=== PATIENT | female | born 1945 | race Caucasian/White ===

== ENCOUNTER → 2017-10-31 | Outpatient (REF) | payer MEDICARE ==
[~2017-10-31] MED LIST: AMLO-1 PO; ASP81 PO; ASPI-715 PO; AZI250 PO; CELE-1 PO; CLI150 PO; DIA5 PO; DICL100T54 PO; FUR20 PO; GAB100 PO; GAB300 PO; HCTZ25 PO; IBUP-1618 PO; INSU100I36 SQ; KET10 PO; LEVI SQ; LISI-362 PO; LOR5/325 PO; MULT1CAP41 PO; OLM20 PO; PER PO; PIRO-91 PO; PRE20 PO; SIMV-44 PO; SITA1TAB13 PO; TRA50 PO; VENL75CA58 PO; VITAMIN E; [UNRECOGNIZED DRUG - CODE] PO; [UNRECOGNIZED DRUG - OTHER]; [UNRECOGNIZED DRUG - OTHER] PO
[2017-10-31 13:52] LABS: PLATELET COUNT, AUTOMATED 288 K/uL (150-450)
== END ==
LOC: ZZSTITCHES 13:41
PROVIDERS: ATTEND Physician Assistant
DX: R60.9 Edema, unspecified (principal); M79.671 Pain in right foot
CPT/HCPCS: 84550; 85025

== ENCOUNTER → 2017-12-08 | Outpatient (CLI) | payer MEDICARE, OTHER ==
--- NOTE | 2017-12-08 15:55 | RADIOLOGY IMAGING REPORT ---
FACILITY: [facility] PATIENT NAME: Jane Arana : 1945 MR: [id number] V: [id number] EXAM DATE: ORDERING PHYSICIAN: GABRIELLA SUGGS TECHNOLOGIST: Location: [facility] [place] Patient: Jane Arana : 1945 Visit/Account:[id number] Date of Sevice: 12/08/2017 HIP LEFT Indication: Left hip pain Comparison: None. Findings: There is mild narrowing of the right and left hip joint. Bones of the pelvis and proximal f emurs are intact. Soft tissues are normal. Degenerative changes are seen in the lower lumbar spine. IMPRESSION: 1. Mild bilateral hip osteoarthritis. 2. Degenerative disc disease change lower lumbar spine. Report Dictated By: Naren Pham at 12/08/2017 3:48 PM Report E-Signed By: Naren Pham at 12/08/2017 3:51 PM WSN:[id number]
== END ==
LOC: RAD 15:23
PROVIDERS: ATTEND Nurse Practitioner Family
DX: M16.0 Bilateral primary osteoarthritis of hip (principal); M19.90 Unspecified osteoarthritis, unspecified site

== ENCOUNTER → 2017-12-25 | Outpatient (CLI) | payer MEDICARE, OTHER ==
[2017-12-25 09:15] LABS: PLATELET COUNT, AUTOMATED 271 K/uL (150-450)
--- NOTE | 2017-12-25 10:44 | RADIOLOGY IMAGING REPORT ---
FACILITY: [facility] PATIENT NAME: Jane Arana : 1945 MR: [id number] V: [id number] EXAM DATE: ORDERING PHYSICIAN: GABRIELLA SUGGS TECHNOLOGIST: Location: [facility] [place] Patient: Jane Arana : 1945 Visit/Account:[id number] Date of Sevice: 12/25/2017 Exam type: CHEST PA AND LAT History: Coughing wheezing x2-3 months Comparison: None. Findings: The lungs are free of acute effusions, infiltrates or edema. The cardiac silhouette is normal in siz e. The trachea is midline. There are moderate spondylotic changes of the thoracic spine. IMPRESSION: 1. No acute cardiopulmonary process is seen Report Dictated By: Ofelia Church MD at 12/25/2017 10:36 AM Report E-Signed By: Ofelia Church MD at 12/25/2017 10:37 AM WSN:[email or web address]
== END ==
LOC: RAD 08:24
PROVIDERS: ATTEND Nurse Practitioner Family
DX: R60.0 Localized edema (principal); R05 Cough; R06.2 Wheezing
CPT/HCPCS: 36415; 71046; 82040; 82247; 82310; 82374; 82435; 82565; 82947; 83880; 84075; 84132; 84155; 84295; 84450; 84460; 84520; 85025

== ENCOUNTER → 2018-01-07 | Outpatient (CLI) | payer MEDICARE, OTHER | LOC: RESP 05:22 | PROVIDERS: ATTEND Nurse Practitioner Family | DX: J98.4 Other disorders of lung (principal) | CPT/HCPCS: 94060; 94726; 94729 ==

== ENCOUNTER 2018-12-06 06:19 | Inpatient (IN) | payer MEDICARE, OTHER ==
[~2018-12-06] VITALS: Ht 168.9 cm; Wt 121.1 kg
--- NOTE | 2018-12-06 06:31 | ER Report ---
History and Physical Time Seen By MD: 06:31 Hx. of Stated Complaint: PATIENT DIAGNOSED WITH INFULENZA ON , PATIENT STATES NOT GETTING BETTER, GETTING WORSE, SHE IS HAVING INC REASED SHORTNESS OF BREATH, PAIN IN CHEST WITH BREATHING. WAS PLACED ON OXYGEN TO GO HOME, TAMIFLU, INHALER, BENZONATATE AND AZYTHROMYCIN. (ISMAEL CARRASQUILLO MD) HPI/ROS CHIEF COMPLAINT: Difficulty breathing HISTORY OF PRESENT ILLNESS: This is a 73-year-old female. She was seen in urgent care on Thursday and diagnosed with influenza after a positive nasal swab. She has a history of COPD. She does not usually wear oxygen; uses Breo once a day. She was placed on oxygen at that time, started on Tamiflu, azithromycin, jett onatate, and albuterol. Since that time, she is been having more and more trouble breathing and having some chest pain with breathing as well. Cough seems worse. Poor appetite. No nausea or vomiting. Normal bowel and bladder function. (ISMAEL CARRASQUILLO MD) Allergies: Coded Allergies: Penicillins (Verified Allergy, Intermediate, EYE SWELLING, ITCHING, 1) Home Meds Reported Medications Albuterol Sulfate (PROVENTIL HFA) 6.7 Gm Inh, 2 PUFF INH BID, INH 12/06/18 Azithromycin (ZITHROMAX) 250 Mg Tablet, 1 TAB PO QDAY, TAB 12/06/18 Benzonatate (BENZONATATE) 200 Mg Capsule, 200 MG PO TID PRN for COUGH, #15 CAP 12/06/18 Oseltamivir Phosphate (TAMIFLU) 75 Mg Cap, 75 MG PO BID, CAP 12/06/18 Sitagliptin Phos/Metformin Hcl (JANUMET 50-1,000 MG TABLET) 1 Each Tablet, 1 EACH PO BID 12/06/18 Losartan Potassium (LOSARTAN POTASSIUM) 100 Mg Tablet, 100 MG PO QDAY 12/06/18 Fesoterodine Fumarate (TOVIAZ) 8 Mg Tabsr, 8 MG PO QDAY 12/06/18 Diclofenac Potassium (ZIPSOR) 25 Mg Capsule, 75 MG PO QDAY, CAPSULE 12/06/18 Levothyroxine Sodium (LEVOTHYROXINE SODIUM) 100 Mcg Tablet, 100 MCG PO QDAY, TAB 12/06/18 Cholecalciferol (Vitamin D3) (VITAMIN D3) 1,000 Unit Tablet, 5000 UNIT PO QDAY, TAB 12/06/18 Gabapentin (GABAPENTIN) 300 Mg Capsule, 300 MG PO TID, CAPSULE 12/06/18 Furosemide (FUROSEMIDE) 20 Mg Tablet, 1 TAB PO QDAY, TAB 12/06/18 Atorvastatin Calcium (ATORVASTATIN CALCIUM) 20 Mg Tablet, 1 TAB PO QDAY, TAB 12/06/18 Potassium Chloride (KLOR-CON 10) 10 Meq Tablet.er, 10 MEQ PO QDAY 12/06/18 Liraglutide (VICTOZA 2-RODRIGO) 0.6 Mg/0.1 Ml Pen.injctr, 1.8 MG SQ QDAY 12/06/18 Discontinued Reported Medications Gabapentin (Neurontin) 300 Mg Cap, 300 MG PO QHS, 0 Refills 05/19/11 [Vitamin E] No Conflict Check, 0 Refills 05/19/11 Aspirin (Aspirin) 81 Mg Tablet.dr, 81 MG PO DAILY, 0 Refills 05/19/11 Insulin Detemir (Levemir) 100 U/Ml Vial, 13 U SQ QPM, 0 Refills 05/19/11 Simvastatin (Zocor) 40 Mg Tablet, 40 MG PO QHS, 0 Refills 05/19/11 Lisinopril (Lisinopril) 10 Mg Tablet, 10 MG PO QAM, 0 Refills 05/19/11 Hydrochlorothiazide (Hydrochlorothiazide) 25 Mg Tab, 12.5 MG PO QDAY, 0 Refills 05/19/11 Diclofenac Sodium (Voltaren-Xr) 100 Mg Tab.sr.24h, 100 MG PO QAM, 0 Refills 05/19/11 Tramadol Hcl (Ultram) 50 Mg Tab, 50 MG PO BID, 0 Refills 05/19/11 Amlodipine Besylate (Amlodipine Besylate) 5 Mg Tablet, 5 MG PO QAM, 0 Refills 05/19/11 Gabapentin (Neurontin) 100 Mg Cap, 200 MG PO, 0 Refills 05/19/11 Sitagliptin Phos/Metformin Hcl (Janumet 50-500 Mg Tablet) 1 Udtab Tablet, 1 UDTAB PO BID, 0 Refills 05/19/11 Past Medical/Surgical History COPD, Hypertension, hyperlipidemia, Type 2 diabetes, arthritis, total knee replacement, cholecystectomy, LAP-BAND surgery (ISMAEL CARRASQUILLO MD) Reviewed Nurses Notes: Yes (ISMAEL CARRASQUILLO MD) Constitutional Vital Sign - Last 24 Hours 12/06/18 12/06/18 12/06/18 12/06/18 06:23 06:23 06:40 06:40 Temp 98.3 Pulse 94 80 Resp 28 20 B/P (MAP) 157/81 Pulse Ox 70 92 O2 Delivery Room Air Nasal Cannula O2 Flow Rate 2.0 2.0 12/06/18 12/06/18 12/06/18 12/06/18 06:50 06:50 06:58 06:58 Pulse 88 88 Resp 20 18 Pulse Ox 93 96 O2 Delivery Nasal Cannula Nasal Cannula O2 Flow Rate 2.0 2.0 (FREIDA CUEVA MD) Physical Exam General Appearance: The patient is alert. No acute distress. Non-toxic in appearance. Eyes: Pupils are equal, round. No pallor, injection or icterus. ENT: Mucous membranes are moist. Normal oral mucosa. Posterior oropharynx with erythema and post nasal drainage. Nasal mucosa with some erythema and increased mucus. Neck: Supple and non tender. Respiratory: Lungs have significant rhonchi that are coarse sounding throughout, expiratory wheezes as well. Cardiovascular: Regular rate and rhythm. No murmurs, gallops or rubs. Normal capillary refill. Gastrointestinal: Abdomen is soft, nontender. Nondistended. Normal active bowel sounds. Neurological: Alert and oriented x3. No focal neurologic deficits. Skin: Warm and dry. Musculoskeletal: No tenderness in palpation of the cervical, thoracic and lumbar spine. DIFFERENTIAL DIAGNOSIS: After history and physical exam, differential diagnosis was considered for shortness of breath including but not limited to pneumonia in addition to her influenza, COPD exacerbation. (ISMAEL CARRASQUILLO MD) Medical Decision Making Data Points Result Diagram: 12/06/1844 12/06/1844 Laboratory Hematology Test 12/06/18 06:44 Red Blood Count 4.81 M/uL (4.17-5.56) Mean Corpuscular Volume 92.1 fL (80.0-96.0) Mean Corpuscular Hemoglobin 30.0 pg (26.0-33.0) Mean Corpuscular Hemoglobin Concent 32.6 g/dL (32.0-36.0) Red Cell Distribution Width 14.4 % (11.5-14.5) Mean Platelet Volume 8.3 fL (7.2-11.1) Neutrophils (%) (Auto) 80.0 % (39.4-72.5) Lymphocytes (%) (Auto) 11.6 % (17.6-49.6) Monocytes (%) (Auto) 7.8 % (4.1-12.4) Eosinophils (%) (Auto) 0.2 % (0.4-6.7) Basophils (%) (Auto) 0.4 % (0.3-1.4) Nucleated RBC Relative Count (auto) 0.1 /100WBC Neutrophils # (Auto) 9.3 K/uL (2.0-7.4) Lymphocytes # (Auto) 1.3 K/uL (1.3-3.6) Monocytes # (Auto) 0.9 K/uL (0.3-1.0) Eosinophils # (Auto) 0.0 K/uL (0.0-0.5) Basophils # (Auto) 0.0 K/uL (0.0-0.1) Nucleated RBC Absolute Count (auto) 0.01 K/uL Sodium Level 140 mmol/L (137-145) Potassium Level 4.4 mmol/L (3.5-5.0) Chloride Level 106 mmol/L (98-107) Carbon Dioxide Level 23 mmol/L (22-31) Blood Urea Nitrogen 22 mg/dl (7-18) Creatinine 0.80 mg/dl (0.52-1.04) Glomerular Filtration Rate Calc > 60.0 Random Glucose 115 mg/dl (75-110) Lactate 2.1 mmol/L (0.7-2.1) Calcium Level 8.8 mg/dl (8.4-10.2) Total Bilirubin 0.5 mg/dl (0.2-1.3) Aspartate Amino Transf (AST/SGOT) 104 U/L (0-35) Alanine Aminotransferase (ALT/SGPT) 77 U/L (0-56) Alkaline Phosphatase 71 U/L (0-126) Total Protein 7.9 g/dl (6.3-8.2) Albumin 4.1 g/dl (3.5-5.0) Chemistry Test 12/06/18 06:44 White Blood Count 11.6 k/uL (4.5-11.0) Red Blood Count 4.81 M/uL (4.17-5.56) Hemoglobin 14.4 g/dL (12.0-16.0) Hematocrit 44.3 % (34.0-47.0) Mean Corpuscular Volume 92.1 fL (80.0-96.0) Mean Corpuscular Hemoglobin 30.0 pg (26.0-33.0) Mean Corpuscular Hemoglobin Concent 32.6 g/dL (32.0-36.0) Red Cell Distribution Width 14.4 % (11.5-14.5) Platelet Count 230 K/uL (150-450) Mean Platelet Volume 8.3 fL (7.2-11.1) Neutrophils (%) (Auto) 80.0 % (39.4-72.5) Lymphocytes (%) (Auto) 11.6 % (17.6-49.6) Monocytes (%) (Auto) 7.8 % (4.1-12.4) Eosinophils (%) (Auto) 0.2 % (0.4-6.7) Basophils (%) (Auto) 0.4 % (0.3-1.4) Nucleated RBC Relative Count (auto) 0.1 /100WBC Neutrophils # (Auto) 9.3 K/uL (2.0-7.4) Lymphocytes # (Auto) 1.3 K/uL (1.3-3.6) Monocytes # (Auto) 0.9 K/uL (0.3-1.0) Eosinophils # (Auto) 0.0 K/uL (0.0-0.5) Basophils # (Auto) 0.0 K/uL (0.0-0.1) Nucleated RBC Absolute Count (auto) 0.01 K/uL Glomerular Filtration Rate Calc > 60.0 Lactate 2.1 mmol/L (0.7-2.1) Calcium Level 8.8 mg/dl (8.4-10.2) Total Bilirubin 0.5 mg/dl (0.2-1.3) Aspartate Amino Transf (AST/SGOT) 104 U/L (0-35) Alanine Aminotransferase (ALT/SGPT) 77 U/L (0-56) Alkaline Phosphatase 71 U/L (0-126) Total Protein 7.9 g/dl (6.3-8.2) Albumin 4.1 g/dl (3.5-5.0) (HILE,FREIDA C MD) ED Course/Re-evaluation ED Course 73-year-old female presents with 3 days of signs and symptoms of influenza, COPD exacerbation. She was started on Tamiflu and antibiotics on Thursday, as well as 3 L of O2 at home. However, she presented for worsening difficulty breathing and sats of 70% at presentation. She has significant wheezing bilaterally which improved somewhat with nebs, however will require continued nebulizer and close monitoring. We'll admit for further evaluation. Decision to Disposition Date: Dec 06, 2018 Decision to Disposition Time: 07:52 (FREIDA CUEVA MD) Depart Departure Latest Vital Signs Vital Signs Date Time Temp Pulse Resp B/P (MAP) Pulse Ox O2 Delivery O2 Flow Rate FiO2 12/06/18 06:58 96 Nasal Cannula 2.0 12/06/18 06:58 88 18 12/06/18 06:23 98.3 157/81 (FREIDA CUEVA MD) Impression: Primary Impression: COPD exacerbation Additional Impression: Influenza Condition: Improved Disposition: Admitted from ER Referrals: GABRIELLA SUGGS (PCP) Problem Qualifiers ISMAEL CARRASQUILLO MD Dec 06, 2018 06:31 FREIDA CUEVA MD Dec 06, 2018 07:53
[2018-12-06] MEDS ORDERED: methylPREDNIS SUCC 125 MG/2ML IVP ONE (06:35)
[2018-12-06] MEDS ORDERED: ALBUTEROL/IPRATROPIUM 3 ML NEB NEB ONE (06:35)
[2018-12-06] MEDS ORDERED: DICL25CA6 PO (06:37)
[2018-12-06] MEDS ORDERED: LEVO-3 PO (06:37)
[2018-12-06] MEDS ORDERED: FESO8PT PO (06:37)
[2018-12-06] MEDS ORDERED: POTA-23 PO (06:37)
[2018-12-06] MEDS ORDERED: LIRA0.6P3 SQ (06:37)
[2018-12-06] MEDS ORDERED: ATOR20TA65 PO (06:37)
[2018-12-06] MEDS ORDERED: LOSA100T75 PO (06:37)
[2018-12-06] MEDS ORDERED: FURO-45 PO (06:37)
[2018-12-06] MEDS ORDERED: CHOL10005 PO (06:37)
[2018-12-06] MEDS ORDERED: GABA-549 PO (06:37)
[2018-12-06] MEDS ORDERED: ALBUTEROL 2.5 MG/3 ML NEB NEB ONE (06:50)
[2018-12-06 06:54] LABS: PLATELET COUNT, AUTOMATED 230 K/uL (150-450)
--- NOTE | 2018-12-06 07:34 | RADIOLOGY IMAGING REPORT ---
FACILITY: [facility] [place] PATIENT NAME: Jane Arana : 1945 MR: [id number] V: [id number] EXAM DATE: ORDERING PHYSICIAN: ISMAEL CARRASQUILLO TECHNOLOGIST: Location: [facility] - [place], [place] Patient: Jane Arana : 1945 Visit/Account:[id number] Date of Sevice: 12/06/2018 EXAMINATION: Chest radiographs 2 views HISTORY: Cough, hypoxia. COMPARISON: 12/25/2017. FINDINGS: PA and lateral views of the chest are submitted. Lines/tubes: None. Lungs/pleura: No focal consolidation or pleural effusion. Heart: Negative. Mediastinum: Negative. Bony structures/body wall: Mild degenerative changes of the thoracic spine. Visualized upper abdomen: Lap band is partly visualized and appears appropriately positioned. IMPRESSION: No radiographic evidence of acute cardiopulmonary disease. Report Dictated By: Susu Tucker MD at 12/06/2018 7:28 AM Report E-Signed By: Susu Tucker MD at 12/06/2018 7:29 AM WSN:[id number]
[2018-12-06 08:31] VITALS: BP 147/71
[2018-12-06] MEDS ORDERED: SITA1TAB17 PO (08:40)
[2018-12-06] MEDS ORDERED: OSE75 PO (08:40)
[2018-12-06] MEDS ORDERED: AZIT-1 PO (08:40)
[2018-12-06] MEDS ORDERED: ALB6.7R INH (08:40)
[2018-12-06] MEDS ORDERED: BENZ200C15 PO (08:40)
[2018-12-06] MEDS ORDERED: BENZONATATE 100 MG CAP PO PRN (10:00)
[2018-12-06] MEDS ORDERED: ACETAMINOPHEN 325 MG TAB PO PRN (10:00)
[2018-12-06] MEDS ORDERED: ALBUTEROL/IPRATROPIUM 3 ML NEB NEB PRN (10:00)
[2018-12-06] MEDS ORDERED: FLUSH 10 ML SYR IVP PRN (10:00)
--- NOTE | 2018-12-06 10:03 | Antimicrobial Stewardship ---
Antimicrobial Stewardship Empiricly appropriate: Yes (Tamiflu + Azithromycin) Significant PMH: Yes (COPD) Support empiric regimen: Yes Comment Tamiflu + Azithromycin started at Urgent Care on Thu12/04/18--> Admitted with worsening symptoms Determine cumulative duration: Today would be Day 3 - started on 12/04/18 at Urgent Care Determine standard duration: Standard Tx for Influenza- 5 days, may extend duration depending on sx Comment 73 yo F who was seen at Urgent Care on Thursday12/04/18 and was diagnosed with Influenza A and pneumonia, started on Tamiflu and Azithromycin. Came to the Ed with significant wheezing/SOB and painful breathing. Tmax afebrile HR 110s--received albuterol and methylpred in the ED WBC 11.6, 80% neutrophils LFTs elevated AST/ALT = 104/77 Chest Xray- no acute cardiopulmonary disease Scr 0.8 Plan to continue treatment with Tamiflu 75mg po BID and azithromycin to complete a full course of therapy for 5 days total. Add steroids and nebs. Will monitor closely. Nataly Davidson, PharmD, BCOP NATALY DAVIDSON Dec 06, 2018 10:03
[2018-12-06] MEDS: LEVOTHYROXINE SOD 0.1 MG TAB PO SCH (11:00)
[2018-12-06 11:03] VITALS: BP 154/94
[2018-12-06] MEDS: DICLOFENAC SOD 75 MG TABCR PO SCH (11:05)
[2018-12-06] MEDS: OSELTAMIVIR PHOS 75 MG CAP PO SCH ×2 (11:05→20:54)
[2018-12-06] MEDS: LOSARTAN POTASSIUM 50 MG TAB PO SCH (11:06)
[2018-12-06] MEDS: POTASSIUM CHL 10 MEQ TABCR PO SCH (11:06)
[2018-12-06] MEDS: AZITHROMYCIN 250 MG TAB PO SCH (11:06)
[2018-12-06] MEDS: FUROSEMIDE 20 MG TAB PO SCH (11:06)
[2018-12-06] MEDS: ALBUTEROL/IPRATROPIUM 3 ML NEB NEB SCH ×2 (11:20→16:38)
[2018-12-06 14:26] VITALS: BP 157/94
[2018-12-06] MEDS: GABAPENTIN 300 MG CAP PO SCH ×2 (14:26→20:54)
[2018-12-06] MEDS: INSULIN HUM LISPRO 100 UN/ML 3 ML VIAL SUBQ PRN ×2 (17:17→20:55)
[2018-12-06 19:15] VITALS: BP 124/62
--- NOTE | 2018-12-06 20:19 | History & Physical ---
History of Present Illness Chief Complaint CAMPUZANO History of Present Illness 73F presented with minimal to no improvement in status since Dx influenza Thursday. PMHx significant for DM, COPD. Diagnosed with influenza in urgent care started on O2 and Tamiflu. Did not note any improvement in symptoms and was feeling more fatigued so presented to [facility] ER. There showed some improvement after breathing treatment and was recommended for admission for observation and continued breathing treatments. History Problems: (1) COPD (chronic obstructive pulmonary disease) (2) Diabetes Home Meds Reported Medications Albuterol Sulfate (PROVENTIL HFA) 6.7 Gm Inh, 2 PUFF INH BID, INH 12/06/18 Azithromycin (ZITHROMAX) 250 Mg Tablet, 1 TAB PO QDAY, TAB 12/06/18 Benzonatate (BENZONATATE) 200 Mg Capsule, 200 MG PO TID PRN for COUGH, #15 CAP 12/06/18 Oseltamivir Phosphate (TAMIFLU) 75 Mg Cap, 75 MG PO BID, CAP 12/06/18 Sitagliptin Phos/Metformin Hcl (JANUMET 50-1,000 MG TABLET) 1 Each Tablet, 1 EACH PO BID 12/06/18 Losartan Potassium (LOSARTAN POTASSIUM) 100 Mg Tablet, 100 MG PO QDAY 12/06/18 Fesoterodine Fumarate (TOVIAZ) 8 Mg Tabsr, 8 MG PO QDAY 12/06/18 Diclofenac Potassium (ZIPSOR) 25 Mg Capsule, 75 MG PO QDAY, CAPSULE 12/06/18 Levothyroxine Sodium (LEVOTHYROXINE SODIUM) 100 Mcg Tablet, 100 MCG PO QDAY, TAB 12/06/18 Cholecalciferol (Vitamin D3) (VITAMIN D3) 1,000 Unit Tablet, 5000 UNIT PO QDAY, TAB 12/06/18 Gabapentin (GABAPENTIN) 300 Mg Capsule, 300 MG PO TID, CAPSULE 12/06/18 Furosemide (FUROSEMIDE) 20 Mg Tablet, 1 TAB PO QDAY, TAB 12/06/18 Atorvastatin Calcium (ATORVASTATIN CALCIUM) 20 Mg Tablet, 1 TAB PO QDAY, TAB 12/06/18 Potassium Chloride (KLOR-CON 10) 10 Meq Tablet.er, 10 MEQ PO QDAY 12/06/18 Liraglutide (VICTOZA 2-RODRIGO) 0.6 Mg/0.1 Ml Pen.injctr, 1.8 MG SQ QDAY 12/06/18 Discontinued Reported Medications Gabapentin (Neurontin) 300 Mg Cap, 300 MG PO QHS, 0 Refills 05/19/11 [Vitamin E] No Conflict Check, 0 Refills 05/19/11 Aspirin (Aspirin) 81 Mg Tablet.dr, 81 MG PO DAILY, 0 Refills 05/19/11 Insulin Detemir (Levemir) 100 U/Ml Vial, 13 U SQ QPM, 0 Refills 05/19/11 Simvastatin (Zocor) 40 Mg Tablet, 40 MG PO QHS, 0 Refills 05/19/11 Lisinopril (Lisinopril) 10 Mg Tablet, 10 MG PO QAM, 0 Refills 05/19/11 Hydrochlorothiazide (Hydrochlorothiazide) 25 Mg Tab, 12.5 MG PO QDAY, 0 Refills 05/19/11 Diclofenac Sodium (Voltaren-Xr) 100 Mg Tab.sr.24h, 100 MG PO QAM, 0 Refills 05/19/11 Tramadol Hcl (Ultram) 50 Mg Tab, 50 MG PO BID, 0 Refills 05/19/11 Amlodipine Besylate (Amlodipine Besylate) 5 Mg Tablet, 5 MG PO QAM, 0 Refills 05/19/11 Gabapentin (Neurontin) 100 Mg Cap, 200 MG PO, 0 Refills 05/19/11 Sitagliptin Phos/Metformin Hcl (Janumet 50-500 Mg Tablet) 1 Udtab Tablet, 1 UDTAB PO BID, 0 Refills 05/19/11 Allergies: Coded Allergies: Penicillins (Verified Allergy, Intermediate, EYE SWELLING, ITCHING, 05/19/11 ) Patient History: FH: COPD (chronic obstructive pulmonary disease) MOTHER FH: pancreatic cancer FATHER Hx Smoking: No Smoking Status: Never Smoker Hx Alcohol Use: No Hx Substance Use Disorder: No Review of Systems All Systems Reviewed/Normal: Yes, Except as Noted Respiratory: Shortness of Breath, Cough Exam Vital Signs Vital Signs Date Time Temp Pulse Resp B/P (MAP) Pulse Ox O2 Delivery O2 Flow Rate FiO2 12/06/18 19:15 98.7 75 16 124/62 (82) 90 Nasal Cannula 2.0 General Appearance: Alert, Awake, No Acute Distress, Afebrile Neuro: No Gross deficits ENT: Normal Cardiovascular: Normal Rhythm & Peripheral Pulses Respiratory: Other (mild wheezing) GI: Abd Soft and Non-Tender Extremities: Soft and Non Tender, Warm, Pulses, Perfused; No Edema Medical Decision Making Data Points Result Diagram: 12/06/1844 12/06/1844 Assessment and Plan Problems: (1) Influenza Status: Acute Assessment & Plan: On Tamiflu, respiratory status stable. Usually on room air has been on 2L since Thursday. (2) COPD exacerbation Status: Acute Assessment & Plan: Continue azithromycin, begin breathing treatments and PO prednisone. (3) Diabetes Assessment & Plan: Accucheck achs, will cover while inpatient with SSI level 1. Venous Thromboembolism Antithrombotics Is Pt On Any Antithrombotics?: Yes Exam Sepsis Risk: No Definite Risk JEREMY HECK DO Dec 06, 2018 20:19
[2018-12-06] MEDS: ATORVASTATIN 10 MG TAB PO SCH (20:54)
[2018-12-07 04:51] VITALS: BP 119/74
[2018-12-07] MEDS: ALBUTEROL/IPRATROPIUM 3 ML NEB NEB SCH ×4 (05:15→18:04)
[2018-12-07] MEDS: LEVOTHYROXINE SOD 0.1 MG TAB PO SCH (05:28)
[2018-12-07 06:22] LABS: PLATELET COUNT, AUTOMATED 217 K/uL (150-450)
[2018-12-07 07:52] VITALS: BP 131/74
[2018-12-07] MEDS: LOSARTAN POTASSIUM 50 MG TAB PO SCH (09:22)
[2018-12-07] MEDS: GABAPENTIN 300 MG CAP PO SCH ×3 (09:22→20:50)
[2018-12-07] MEDS: ENOXAPARIN 40 MG/0.4ML SYR SC SCH (09:23)
[2018-12-07] MEDS: AZITHROMYCIN 250 MG TAB PO SCH (09:23)
[2018-12-07] MEDS: OSELTAMIVIR PHOS 75 MG CAP PO SCH ×2 (09:23→20:50)
[2018-12-07] MEDS: FUROSEMIDE 20 MG TAB PO SCH (09:23)
[2018-12-07] MEDS: DICLOFENAC SOD 75 MG TABCR PO SCH (09:23)
[2018-12-07] MEDS: predniSONE 20 MG TAB PO SCH (09:23)
[2018-12-07] MEDS: POTASSIUM CHL 10 MEQ TABCR PO SCH (09:23)
[2018-12-07] MEDS ORDERED: ALBUTEROL 2.5 MG/3 ML NEB NEB PRN (09:55)
--- NOTE | 2018-12-07 10:32 | RADIOLOGY IMAGING REPORT ---
FACILITY: [facility] PATIENT NAME: Jane Arana : 1945 MR: [id number] V: [id number] EXAM DATE: ORDERING PHYSICIAN: LINWOOD CHAVES TECHNOLOGIST: Location: [facility] Patient: Jane Arana : 1945 Visit/Account:[id number] Date of Sevice: 12/07/2018 CHEST PA LAT HISTORY: Shortness of breath. COMPARISON: 12/06/2018 FINDINGS: Cardiomediastinal contours: Normal Lungs and pleura: Normal Bones/soft tissues: Multilevel mild degenerative disc disease within the spine. Other findings: None significant IMPRESSION: 1. No acute cardiopulmonary disease. No change. Report Dictated By: Emerson Walton MD at 12/07/2018 10:22 AM Report E-Signed By: Emerson Walton MD at 12/07/2018 10:26 AM WSN:[email or web address]
--- NOTE | 2018-12-07 11:13 | Hospitalist Progress Note ---
Subjective Progress Notes Subjective Patient was admitted with influenza and COPD exacerbation. She has complaints of shortness of breath, wheezing this morning. Patient Complains of: Cardiovascular: No: Chest Pain Respiratory: No: Shortness of Breath Physical Exam Vital Signs Date Time Temp Pulse Resp B/P (MAP) Pulse Ox O2 Delivery O2 Flow Rate FiO2 12/07/18 10:10 71 16 12/07/18 10:05 93 Nasal Cannula 2.0 12/07/18 07:52 97.9 131/74 (93) Intake and Output 12/07/18 00:00 Intake Total 1040 ml Balance 1040 ml Intake Oral 1040 ml # Voids 1 General Appearance: Alert, Awake, No Acute Distress, Afebrile Cardiovascular: Regular Rate and Rhythm Respiratory: No Respiratory Distress, Other (severe expiratory wheezes, coarse throughout) Extremities: Warm, Perfused Psych: Alert & Oriented X3, Appropriate Mood & Affect Result Diagram: 12/07/18 0550 12/07/18 0550 Assessment and Plan Problems: (1) Influenza Status: Acute Assessment & Plan: On Tamiflu, respiratory status stable. Usually on room air has been on 2L since Thursday. (2) COPD exacerbation Status: Acute Assessment & Plan: Continue azithromycin, begin breathing treatments and PO prednisone. Repeated chest x-ray 12/07, shows no change. Will add Ceftriaxone to azithromycin for increased coverage. Also will increase breathing treatment regimen to four times daily and prn. (3) Diabetes Assessment & Plan: Accucheck achs, will cover while inpatient with SSI level 1. Exam Sepsis Risk: No Definite Risk LINWOOD CHAVES Dec 07, 2018 11:13
[2018-12-07] MEDS ORDERED: NS(*) 0.9% 250 ML BAG 250 ML ONE (11:50)
[2018-12-07] MEDS: cefTRIAXone 2 GM VIAL IVP SCH (11:51)
[2018-12-07] MEDS ORDERED: ALBUTEROL/IPRATROPIUM 3 ML NEB NEB SCH (12:00)
[2018-12-07 12:51] VITALS: BP 161/100
[2018-12-07 13:24] VITALS: BP 124/68
[2018-12-07 14:06] VITALS: Ht 168.9 cm; Wt 121.1 kg
[2018-12-07 15:47] VITALS: BP 145/83
[2018-12-07] MEDS: INSULIN HUM LISPRO 100 UN/ML 3 ML VIAL SUBQ PRN ×2 (17:28→20:50)
[2018-12-07] MEDS ORDERED: FLUT1AER INH (18:51)
[2018-12-07] MEDS ORDERED: DICL-195 PO (18:51)
[2018-12-07 19:20] VITALS: BP 153/76
[2018-12-07] MEDS: ATORVASTATIN 10 MG TAB PO SCH (20:50)
[2018-12-08 03:18] VITALS: BP 173/99
[2018-12-08] MEDS: ALBUTEROL/IPRATROPIUM 3 ML NEB NEB SCH ×4 (04:55→17:00)
[2018-12-08] MEDS: LEVOTHYROXINE SOD 0.1 MG TAB PO SCH (05:31)
[2018-12-08 06:18] LABS: PLATELET COUNT, AUTOMATED 209 K/uL (150-450)
[2018-12-08 07:14] VITALS: BP 128/81
[2018-12-08] MEDS: AZITHROMYCIN 250 MG TAB PO SCH (08:37)
[2018-12-08] MEDS: POTASSIUM CHL 10 MEQ TABCR PO SCH (08:38)
[2018-12-08] MEDS: predniSONE 20 MG TAB PO SCH (08:38)
[2018-12-08] MEDS: OSELTAMIVIR PHOS 75 MG CAP PO SCH ×2 (08:39→20:58)
[2018-12-08] MEDS: GABAPENTIN 300 MG CAP PO SCH ×3 (08:39→20:58)
[2018-12-08] MEDS: ENOXAPARIN 40 MG/0.4ML SYR SC SCH (08:39)
[2018-12-08] MEDS: FUROSEMIDE 20 MG TAB PO SCH (08:39)
[2018-12-08] MEDS: DICLOFENAC SOD 75 MG TABCR PO SCH (08:40)
[2018-12-08] MEDS: LOSARTAN POTASSIUM 50 MG TAB PO SCH (08:41)
[2018-12-08] MEDS ORDERED: INFLUENZA VIRUS VAC 0.5ML SYR IM ONLY ONE (10:00)
[2018-12-08] MEDS: cefTRIAXone 2 GM VIAL IVP SCH (10:42)
[2018-12-08] MEDS ORDERED: cefTRIAXone 2 GM VIAL IVP SCH (11:00)
--- NOTE | 2018-12-08 11:29 | Hospitalist Progress Note ---
Subjective Progress Notes Subjective She has complaints of wheezing, but feels she is starting to get better. She had no acute events overnight. Patient Complains of: Cardiovascular: No: Chest Pain Respiratory: No: Shortness of Breath Physical Exam Vital Signs Date Time Temp Pulse Resp B/P (MAP) Pulse Ox O2 Delivery O2 Flow Rate FiO2 12/08/18 09:27 69 16 12/08/18 09:19 93 Nasal Cannula 2.0 12/08/18 07:14 97.8 128/81 (97) Intake and Output 12/08/18 07:00 Intake Total 2300 ml Balance 2300 ml Intake Oral 2300 ml # Voids 1 General Appearance: Alert, Awake, No Acute Distress, Afebrile Neuro: No Gross deficits Cardiovascular: Regular Rate and Rhythm Respiratory: No Respiratory Distress, Other (expiratory wheezes noted throughout, coarse in the bases) Psych: Alert & Oriented X3, Appropriate Mood & Affect Result Diagram: 12/08/1844 12/08/18543 Assessment and Plan Problems: (1) Influenza Status: Acute Assessment & Plan: On Tamiflu, respiratory status stable. Usually on room air has been on 2L since Thursday. (2) COPD exacerbation Status: Acute Assessment & Plan: Continue azithromycin, begin breathing treatments and PO prednisone. Repeated chest x-ray 12/07, shows no change. Will add Ceftriaxone to azithromycin for increased coverage. Also will increase breathing treatment regimen to four times daily and prn. (3) Diabetes Assessment & Plan: Accucheck achs, will cover while inpatient with SSI level 1. Exam Sepsis Risk: No Definite Risk LINWOOD CHAVES Dec 08, 2018 11:29
[2018-12-08] MEDS: INSULIN HUM LISPRO 100 UN/ML 3 ML VIAL SUBQ PRN ×3 (11:53→19:44)
[2018-12-08 14:54] VITALS: BP 151/81
[2018-12-08 19:00] VITALS: BP 162/76
[2018-12-08] MEDS: ATORVASTATIN 10 MG TAB PO SCH (20:59)
[2018-12-09] MEDS: ALBUTEROL/IPRATROPIUM 3 ML NEB NEB SCH ×2 (05:13→09:53)
[2018-12-09] MEDS: LEVOTHYROXINE SOD 0.1 MG TAB PO SCH (06:12)
[2018-12-09 06:57] VITALS: BP 149/81
[2018-12-09 09:16] VITALS: BP 155/75
[2018-12-09] MEDS: GABAPENTIN 300 MG CAP PO SCH (09:19)
[2018-12-09] MEDS: FUROSEMIDE 20 MG TAB PO SCH (09:19)
[2018-12-09] MEDS: OSELTAMIVIR PHOS 75 MG CAP PO SCH (09:20)
[2018-12-09] MEDS: DICLOFENAC SOD 75 MG TABCR PO SCH (09:20)
[2018-12-09] MEDS: predniSONE 20 MG TAB PO SCH (09:20)
[2018-12-09] MEDS: AZITHROMYCIN 250 MG TAB PO SCH (09:21)
[2018-12-09] MEDS: POTASSIUM CHL 10 MEQ TABCR PO SCH (09:21)
[2018-12-09] MEDS: LOSARTAN POTASSIUM 50 MG TAB PO SCH (09:21)
[2018-12-09] MEDS: ENOXAPARIN 40 MG/0.4ML SYR SC SCH (09:22)
[2018-12-09] MEDS ORDERED: PRED20TA6 PO (10:19)
[2018-12-09] MEDS ORDERED: CEF300 PO (10:19)
[2018-12-09] MEDS ORDERED: LEVA1.2527 IH (10:19)
--- NOTE | 2018-12-09 10:29 | Hospitalist Depart ---
Discharge Summary Reason for Hosp/Final Diag: (1) Influenza Status: Acute Hospital Course & Plan: She was admitted with Influenza A. She is on Tamiflu, respiratory status stable. Usually on room air has been on 3L since Thursday, she will decrease to 2L this morning. She will continue Tamiflu prescribed by Urgent care at home. (2) COPD exacerbation Status: Acute Hospital Course & Plan: She was placed on azithromycin by urgent care, she began breathing treatments and PO prednisone. Repeated chest x-ray 12/07, shows no change from previous. Ceftriaxone was added to azithromycin for increased coverage of CAP. Also will increase breathing treatment regimen to four times daily and prn. She will be sent home with breathing treatments, prednisone. She will continue azithromycin from urgent in addition to Omnicef. (3) Diabetes Hospital Course & Plan: Accucheck stephanies, will cover while inpatient with [facility] 1. Departure Latest Vital Signs Vital Signs 12/09/18 12/09/18 12/09/18 12/09/18 06:57 09:16 09:50 09:57 Temp 98.4 Pulse 70 Resp 18 B/P (MAP) 155/75 (101) Pulse Ox 91 O2 Delivery Nasal Cannula O2 Flow Rate 2.0 Weight (Pounds): 267 Result Diagram: 12/08/1854312/08/18543 Condition: Improved Discharge: Home, Self Care Discharge Instructions Home Meds Active Scripts Levalbuterol Hcl (XOPENEX) 1.25 Mg/3 Ml Vial.neb, 1.25 MG IH Q4H PRN for WHEEZING, #90 VIAL Prov:LINWOOD CHAVES 12/09/18 Prednisone (PREDNISONE) 20 Mg Tablet, 20 MG PO QDAY, #14 TAB Take 2 tabs for 2 days, then 1.5 tabs for 3 days, then 1 tab for 3 days, then 0.5 tab for 3 days Prov:LINWOOD CHAVES 12/09/18 Cefdinir 300 Mg Cap (OMNICEF 300 MG CAP (OR EQUIV)) 300 Mg Cap, 300 MG PO BID for 4 Days, #8 CAP Prov:LINWOOD CHAVES 12/09/18 Reported Medications Fluticasone/Vilanterol 100/25 Mcg/Inh (BREO ELLIPTA 100/25 MCG) 1 Each Aer.pow.ba, 1 PUFF INH QDAY, INH 12/07/18 Diclofenac Sodium (DICLOFENAC SODIUM) 75 Mg Tablet.dr, 75 MG PO QDAY, TAB 12/07/18 Albuterol Sulfate (PROVENTIL HFA) 6.7 Gm Inh, 2 PUFF INH BID, INH 12/06/18 Azithromycin (ZITHROMAX) 250 Mg Tablet, 1 TAB PO QDAY, TAB 12/06/18 Benzonatate (BENZONATATE) 200 Mg Capsule, 200 MG PO TID PRN for COUGH, #15 CAP 12/06/18 Oseltamivir Phosphate (TAMIFLU) 75 Mg Cap, 75 MG PO BID, CAP 12/06/18 Sitagliptin Phos/Metformin Hcl (JANUMET 50-1,000 MG TABLET) 1 Each Tablet, 1 EACH PO BID 12/06/18 Losartan Potassium (LOSARTAN POTASSIUM) 100 Mg Tablet, 100 MG PO QDAY 12/06/18 Fesoterodine Fumarate (TOVIAZ) 8 Mg Tabsr, 8 MG PO QDAY 12/06/18 Levothyroxine Sodium (LEVOTHYROXINE SODIUM) 100 Mcg Tablet, 100 MCG PO QDAY, TAB 12/06/18 Cholecalciferol (Vitamin D3) (VITAMIN D3) 1,000 Unit Tablet, 5000 UNIT PO QDAY, TAB 12/06/18 Gabapentin (GABAPENTIN) 300 Mg Capsule, 300 MG PO TID, CAPSULE 12/06/18 Furosemide (FUROSEMIDE) 20 Mg Tablet, 2 TAB PO QDAY, TAB 12/06/18 Atorvastatin Calcium (ATORVASTATIN CALCIUM) 20 Mg Tablet, 1 TAB PO QDAY, TAB 12/06/18 Potassium Chloride (KLOR-CON 10) 10 Meq Tablet.er, 10 MEQ PO QDAY 12/06/18 Liraglutide (VICTOZA 2-RODRIGO) 0.6 Mg/0.1 Ml Pen.injctr, 1.8 MG SQ QDAY 12/06/18 Discontinued Reported Medications Diclofenac Potassium (ZIPSOR) 25 Mg Capsule, 75 MG PO QDAY, CAPSULE 12/06/18 Gabapentin (Neurontin) 300 Mg Cap, 300 MG PO QHS, 0 Refills 05/19/11 [Vitamin E] No Conflict Check, 0 Refills 05/19/11 Aspirin (Aspirin) 81 Mg Tablet.dr, 81 MG PO DAILY, 0 Refills 05/19/11 Insulin Detemir (Levemir) 100 U/Ml Vial, 13 U SQ QPM, 0 Refills 05/19/11 Simvastatin (Zocor) 40 Mg Tablet, 40 MG PO QHS, 0 Refills 05/19/11 Lisinopril (Lisinopril) 10 Mg Tablet, 10 MG PO QAM, 0 Refills 05/19/11 Hydrochlorothiazide (Hydrochlorothiazide) 25 Mg Tab, 12.5 MG PO QDAY, 0 Refills 05/19/11 Diclofenac Sodium (Voltaren-Xr) 100 Mg Tab.sr.24h, 100 MG PO QAM, 0 Refills 05/19/11 Tramadol Hcl (Ultram) 50 Mg Tab, 50 MG PO BID, 0 Refills 05/19/11 Amlodipine Besylate (Amlodipine Besylate) 5 Mg Tablet, 5 MG PO QAM, 0 Refills 05/19/11 Gabapentin (Neurontin) 100 Mg Cap, 200 MG PO, 0 Refills 05/19/11 Sitagliptin Phos/Metformin Hcl (Janumet 50-500 Mg Tablet) 1 Udtab Tablet, 1 UDTAB PO BID, 0 Refills 05/19/11 Diet: Regular Activity: As Tolerated Special Instructions: Take antibiotics Omnicef and Azithromycin as prescribed until gone. Take prednisone as prescribed. Use oxygen at all times. Use nebulizers as needed every 4 hours for Shortness of breath or Wheezing. Follow up with Flora Stern next week. Copies to: FLORA STERN ; Venous Thromboembolism Antithrombotics Is Pt On Any Antithrombotics?: Yes LINWOOD CHAVES Dec 09, 2018 10:29
[2018-12-09] MEDS: cefTRIAXone 2 GM VIAL IVP SCH (10:38)
== END 2018-12-09 11:45 | disposition home or self-care (01) | DRG 194 ==
LOC: ER 06:30 → MED 08:13
PROVIDERS: ADMIT Internal Medicine; ATTEND Internal Medicine
DX: J10.1 Influenza due to other identified influenza virus with other respiratory manifestations (principal); J44.1 Chronic obstructive pulmonary disease with (acute) exacerbation; I10 Essential (primary) hypertension; E11.9 Type 2 diabetes mellitus without complications; Z79.4 Long term (current) use of insulin; E78.5 Hyperlipidemia, unspecified; Z90.49 Acquired absence of other specified parts of digestive tract; Z88.0 Allergy status to penicillin
CPT/HCPCS: 36415; 36416; 71046; 82040; 82247; 82310; 82374; 82435; 82565; 82947; 82948; 83605; 83735; 84075; 84132; 84155; 84295; 84450; 84460; 84520; 85025; 87040; 94640; 94667; 94668; 96374; 99284; J0696; J1650; J2930; J7050; J7512; J7613

== ENCOUNTER → 2019-03-04 | Outpatient (CLI) | payer MEDICARE, OTHER ==
[2018-12-07 14:06] VITALS: BMI 42.4
[~2019-03-04] MED LIST changes: +ALB6.7R INH; +ATOR20TA65 PO; +AZIT-1 PO; +BENZ200C15 PO; +CEF300 PO; +CHOL10005 PO; +DICL-195 PO; +DICL25CA6 PO; +FESO8PT PO; +FLUT1AER INH; +FURO-45 PO; +GABA-549 PO; +LEVA1.2527 IH; +LEVO-3 PO; +LIRA0.6P3 SQ; +LOSA100T75 PO; +OSE75 PO; +POTA-23 PO; +PRED20TA6 PO; +SITA1TAB17 PO
== END ==
LOC: RESP 20:19
PROVIDERS: ATTEND Nurse Practitioner Family
DX: G47.33 Obstructive sleep apnea (adult) (pediatric) (principal); G47.61 Periodic limb movement disorder

== ENCOUNTER 2019-05-10 09:00 | Outpatient (RCR) | payer MEDICARE, OTHER ==
[2018-12-07 14:06] VITALS: BMI 42.4
== END 2019-05-18 ==
LOC: CARD 09:00
PROVIDERS: ATTEND Nurse Practitioner Family
DX: J44.9 Chronic obstructive pulmonary disease, unspecified (principal)
CPT/HCPCS: G0424 ×19

== ENCOUNTER → 2019-05-19 | Outpatient (CLI) | payer MEDICARE, OTHER ==
[2018-12-07 14:06] VITALS: BMI 42.4
== END ==
LOC: RESP 20:51
PROVIDERS: ATTEND Nurse Practitioner Family
DX: G47.33 Obstructive sleep apnea (adult) (pediatric) (principal); G47.36 Sleep related hypoventilation in conditions classified elsewhere; G47.61 Periodic limb movement disorder